=== PATIENT | male | born 1980 | race Caucasian/White ===

== ENCOUNTER → 2016-05-13 12:23 | Day surgery (SDC) | payer BC ==
[~2016-05-13 12:23] MED LIST: Buffered Lidocaine 1% SYRIN* 3 ML/SYR SYRINGE INTRADERM ONE; Bupivacaine 0.25% EPI 200,000* 30 ML SDV ONE; Bupivacaine 0.5% W/EPI SDV* 30 ML VIAL ONE; DiMENhydriNATE IV* 50 MG/ML VIAL IV PUSH PRN; Famotidine IV* 10 MG/ML 2 ML (20 mg) IV ONE; Famotidine IV* 10 MG/ML 2 ML (20 mg) ONE; HYDROmorphone* 1 MG/ML 1 ML SYR IV PRN; KETAMINE HCL* 50 MG/ML 10 ML VIAL ONE; Ketorolac INJ* 30 MG/ML 1 ML VIAL ONE; Lidocaine 1% INJ* 10 MG/ML 30 ML SDV ONE; Lidocaine 2% PF* 5 ML VIAL ONE; Midazolam* 1 MG/ML 5 ML VIAL (5 MG) ONE; Ondansetron INJ* 2 MG/ML VIAL ONE; Propofol* 10 MG/ML 20 ML BTL IV PUSH ONE; ceFAZolin 2 GM PREMIX(*) 0 GM/0 ML BAG IVPB ONE; ceFOXitin 2 GM IVPREMIX* 2 GM/50 ML BAG ONE; fentaNYL* 50 MCG/ML 2 ML VIAL (100 MCG VIAL) ONE; oxyCODONE/Acetamin 5/325 MG* TAB PO PRN
[2016-05-13 15:32] VITALS: BP 123/68
--- NOTE | 2016-05-14 05:55 | OP ---
DATE OF OPERATION: 05/13/16 - [facility] DATE OF : 82 SURGEON: Ricky Platt MD PROJECTION CAMERA OPERATOR: None. ANESTHESIOLOGIST: Dr. Melgar. ANESTHESIA: LMAC anesthesia. PRE-OP DIAGNOSIS: Anal condylomata. POST-OP DIAGNOSIS: Anal condylomata. OPERATIVE PROCEDURES: 1. Anoscopy. 2. Ablation of anal condylomata. DESCRIPTION OF PROCEDURE: The patient was supine on the operating table. After adequate intravenous sedation, compression stockings, Renu Hugger warmer, he was placed in the prone meredith-knife position with the buttocks taped apart. Betadine prep was utilized. Local anesthetic was administered around the anal canal. Anal retractors were used to examine the entirety of the anal canal and there are multiple small lesions consistent with condylomata. There are also two skin tags and I cannot tell if they contain any condyloma or if they are truly benign skin tags. In any case, one chunk of tissue that looked clearly condylomatous was excised and sent for pathology. The remainder of the spots were ablated with electrocautery including the skin tags. Everything was in good condition with additional inspection. Hemostasis was good. Packing was placed in the anal canal followed by bulky gauze dressing. He tolerated the procedure well, and was brought to recovery in good condition. There are no complications. No drains. 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 Sponge and instrument counts correct. Estimated blood loss is almost nil. CC: Dr. Ricky Platt; Dr. Marin; Dr. Wylie * [id number]/[facility] #: [id number] [facility]
== END | disposition home or self-care (01) ==
LOC: OR 12:23
PROVIDERS: ATTEND Surgery
DX: A63.0 Anogenital (venereal) warts (principal); F17.210 Nicotine dependence, cigarettes, uncomplicated
CPT/HCPCS: 88304; J0690; J0694; J1885; J2001; J2250; J2405; J2704; J3010

== ENCOUNTER 2019-04-01 17:38 | Emergency (ER) | payer BC ==
[2019-04-01] MEDS ORDERED: Lidocaine 1% INJ* 10 MG/ML 30 ML SDV INJ ONE (17:53)
--- NOTE | 2019-04-01 17:58 | ED ---
Laceration/Wound HPI - HPI Summary HPI Summary: 38-year-old male who is up-to-date with his tetanus immunization is and is not on anticoagulation and does not have a bleeding disorder presents to the emergency department today complaining of a laceration to the posterior aspect of his right ear the skin fold between the scalp and auricle. Patient states this occurred at approximately 0200 yesterday evening while he was intoxicated. Patient states he slipped and cut it on his couch and went to bed. Patient endorses no neurological deficits and no headache at this time. Patient is neurologically intact. Bleeding is controlled. There is no evidence of secondary infection to this laceration. Auricle is well attached to the scalp. Patient is otherwise well and denies fever, chest pain, abdominal pain, shortness of breath, rash, pain with urination, nausea, vomiting, diarrhea. - History of Current Complaint Stated Complaint: EAR PAIN Time Seen by Provider: 04/01/19 17:45 Hx Obtained From: Patient Mechanism of Injury: Sharp/Blunt Trauma Onset/Duration: Sudden Onset Onset Severity: Mild Current Severity: Mild Pain Intensity: 2 Pain Scale Used: 0-10 Numeric Associated Signs & Symptoms: Pain - Allergy/Home Medications Allergies/Adverse Reactions: Allergies Allergy/AdvReac Type Severity Reaction Status Date / Time No Known Allergies Allergy Verified 05/13/16 12:40 Home Medications: Home Medications Ibuprofen [Ibuprofen 200 MG] 2 cap PO Q4HR PRN 05/06/16 [History Confirmed 05/13] PMH/Surg Hx/FS Hx/Imm Hx Sensory History: Reports: Hx Contacts or Glasses - wears contacts, will wear glasses day of surgery Denies: Hx Hearing Aid Opthamlomology History: Reports: Hx Contacts or Glasses - wears contacts, will wear glasses day of surgery - Surgical History Hx Anesthesia Reactions: No Infectious Disease History: No Infectious Disease History: Denies: Traveled Outside the [place] in Last 30 Days - Social History Alcohol Use: every other weekend Alcohol Amount: 10 beers Substance Use Type: Reports: None Smoking Status (MU): Heavy Every Day Tobacco Smoker Amount Used/How Often: 1 pk/day Review of Systems Constitutional: Negative Eyes: Negative ENT: Negative Cardiovascular: Negative Respiratory: Negative Gastrointestinal: Negative Genitourinary: Negative Musculoskeletal: Negative Skin: Negative Neurological/Mental Status: Negative Psychological: Normal All Other Systems Reviewed And Are Negative: Yes Physical Exam - Summary Physical Exam Summary: There is a laceration extending from the apex of the right ear to the inferior margin between the skin fold of the scalp and auricle. Bleeding is controlled. There is very minimal cartilage exposure. No evidence of secondary infection. Auricle as well attached. Triage Information Reviewed: Yes Vital Signs On Initial Exam: Initial Vitals Temp Pulse Resp BP Pulse Ox 98.4 F 108 19 159/91 99 04/01/19 17:40 04/01/19 17:40 04/01/19 17:40 04/01/19 17:40 04/01/19 17:40 Vital Signs Reviewed: Yes Appearance: Positive: Well-Appearing, No Pain Distress, Well-Nourished Skin: Positive: Warm, Skin Color Reflects Adequate Perfusion Eyes: Positive: EOMI, GILA ENT: Positive: Hearing grossly normal Respiratory/Lung Sounds: Positive: Clear to Auscultation, Breath Sounds Present Cardiovascular: Positive: RRR, S1, S2 Musculoskeletal: Positive: Strength/ROM Intact Neurological: Positive: Sensory/Motor Intact, Alert, Oriented to Person Place, Time, Normal Gait, Facial Symmetry, Speech Normal Psychiatric: Positive: Normal, Affect/Mood Appropriate AVPU Assessment: Alert Procedures - Sedation Patient Received Moderate/Deep Sedation with Procedure: No - Laceration/Wound Repair 1 Location: head Description: Linear Anesthesia: Local, 1.0% Length, Depth and Shape: 3 cm x 4mm deep Betadine Prep?: No Irrigated w/ Saline (ccs): 100 Laceration/Wound Explored: clean, no foreign body removed Closure: Single Layer Suture Type: Prolene - 6-0 Number of Sutures: 10 - 10 sutures placed in simple interrupted fashion. Layer Closure?: No Sterile Dressing Applied?: Yes Diagnostics - Vital Signs Vital Signs Temp Pulse Resp BP Pulse Ox 04/01/19 17:40 98.4 F 108 19 159/91 99 - Laboratory Lab Statement: Any lab studies that have been ordered have been reviewed, and results considered in the medical decision making process. Laceration Repair Course/Dx - Course Course Of Treatment: Patient was evaluated in the emergency department today for laceration to the posterior right ear. Vitals noted and stable. Patient's tetanus immunization is up-to-date. Patient's laceration was repaired using 10 simple interrupted sutures using 6unknown Prolene. Prior to laceration repair patient was anesthetized using an auricular block with 1% lidocaine without epinephrine. Minimal blood loss. Patient tolerated procedure well. Sterile dressing was applied. Patient was given discharge instructions for suture removal and wound care. Patient discharged to outpatient follow-up. - Differential Dx Differental Diagnoses: Abrasion, Avulsion, Laceration - Clinical Impression Provider Diagnoses: Laceration of right ear Discharge ED - Sign-Out/Discharge Documenting (check all that apply): Patient Departure - Discharge Plan Condition: Stable Disposition: HOME Patient Education Materials: Care For Your Stitches (ED), Laceration (ED) Referrals: Tripp Marin MD [Primary Care Provider] - 7 Days Additional Instructions: During your stay you had 10 sutures placed. Please have these removed in 8 days at this emergency department or your primary care provider. The next 12 hours please keep your dressing dry and in place after this you may gently clean yor wound and reapply dressing daily. Please follow up with your primary care provider in 8 days for suture removal and/or wound check. Please return to this emergency Department immediately if you develop any new or worsening symptoms. - Billing Disposition and Condition Condition: STABLE Disposition: Home - Attestation Statements Provider Attestation: I was available for consult. This patient was seen by the [facility]. The patient was not presented to, seen by, or examined by me. Zach Garcia MD
[2019-04-01 19:13] VITALS: BP 124/92
== END 2019-04-01 19:12 | disposition home or self-care (01) ==
LOC: ED 17:38
DX: S01.311A Laceration without foreign body of right ear, initial encounter (principal); W22.03XA Walked into furniture, initial encounter; Y92.9 Unspecified place or not applicable; F17.200 Nicotine dependence, unspecified, uncomplicated
CPT/HCPCS: 12013; 99282